=== PATIENT | female | born 1935 | race Hispanic/Latino ===

== ENCOUNTER 2016-05-22 15:28 | Emergency (ER) | payer MEDICARE ==
[~2016-05-22] VITALS: Ht 152.4 cm; Wt 65.0 kg
[~2016-05-22 15:28] MED LIST: ALENDRONATE35 MG PO; AMLODIPINE5 MG PO; ASPIRIN CHEWABL81 MG PO; BUSPIRONE7.5 MG PO; CALCIUM600 M1 PO; CHELATED MAGNE100 MG PO; CIPROFLOXACN250 MG PO; CLOPIDOGREL75 MG PO; COREG3.125 MG PO; LOSARTAN POT100 MG PO; METFORMIN500 M1 PO; PANTOPRAZOLE SO40 MG PO; SANCTURA20 MG OR; TRICOR145 MG PO; TROSPIUM CL20 MG PO; VITAMIN D1000 UNIT PO; ZOCOR20 M1 PO
[2016-05-22] MEDS ORDERED: OXYBUTYNIN5 M1 PO (15:40)
[2016-05-22] MEDS ORDERED: LIPITOR20 M1 PO (15:44)
[2016-05-22] MEDS ORDERED: TELMISARTAN80 MG PO (15:45)
[2016-05-22 16:13] LABS: HEMOGLOBIN 9.4 g/dl (12.0-16.0); IMMATURE GRANULOCYTES 0.2 % (0.0-1.0); MEAN CELL VOLUME 84.7 fL CALC (80.0-100.0); MEAN CORPUSCULAR HGB 30.6 pG CALC (26.0-32.0); MEAN CORPUSCULAR HGB CONC 36.2 g/L CALC (32.0-36.0); NEUT# 5.23 thou/uL (2.00-7.15); RED BLOOD COUNT 3.07 mill/uL (4.20-5.60); RED CELL DISTRI WIDTH 12.3 % (11.5-15.5)
[2016-05-22 16:32] LABS: PROTHROMBIN TIME 10.6 SECONDS (9.0-12.5)
[2016-05-22 16:35] LABS: ALBUMIN 4.2 g/dL (3.2-5.0); ALKALINE PHOSPHATASE 85 u/l (38-126); ANION GAP 16 (6-22 (CALC)); BILIRUBIN, TOTAL 0.5 mg/dL (0.0-1.4); BUN 19 mg/dL (8-23); BUN/CREATININE RATIO 15 (12-20 (CALC)); CALCIUM 9.6 mg/dL (8.4-10.2); CARBON DIOXIDE 24 mmol/l (22-30); CHLORIDE 94 mmol/l (95-108); CREATININE 1.3 mg/dL (0.5-1.0); GFR 39 ML/MIN (>=60 (CALC)); GFR FOR AFR.AMER. 47 ML/MIN (>=60 (CALC)); GLUCOSE 119 mg/dL (82-115); POTASSIUM 4.7 mmol/l (3.5-5.1); SGOT/AST 35 u/l (9-36); SGPT/ALT 37 u/l (11-66); SODIUM 128 mmol/l (137-146); TOTAL PROTEIN 7.4 g/dL (6.3-8.2)
[2016-05-22 16:46] LABS: MYOGLOBIN 48 ng/mL (0 - 62)
[2016-05-22 17:35] LABS: URINE BILIRUBIN - DIPSTICK NEGATIVE (NEGATIVE); URINE BLOOD DIPSTICK NEGATIVE (NEGATIVE); URINE CLARITY CLEAR; URINE COLOR YELLOW; URINE GLUCOSE - DIPSTICK NEGATIVE (NEGATIVE); URINE KETONE NEGATIVE (NEGATIVE); URINE LEUK ESTERASE TRACE (NEGATIVE); URINE NITRITE - DIPSTICK NEGATIVE (Negative); URINE PH 5.5 (4.5-8.0); URINE PROTEIN - DIPSTICK 30 mg/dL (NEG-TRACE); URINE UROBILINOGEN - DIPSTICK 0.2 E.U./dL (0.2)
[2016-05-22 17:36] LABS: URINE RBC 0-2 RBC/hpf (0-5); URINE SQUAMOUS EPITHELIAL CELL FEW EPI/hpf (0-FEW); URINE WBC 0-2 WBC/hpf (0-5)
[2016-05-22 18:02] VITALS: BP 121/57
== END 2016-05-22 18:17 | disposition home or self-care (01) ==
LOC: ED 15:28
PROVIDERS: Emergency Medicine
DX: R42 Dizziness and giddiness (principal); I10 Essential (primary) hypertension; E11.9 Type 2 diabetes mellitus without complications; F32.9 Major depressive disorder, single episode, unspecified; M81.0 Age-related osteoporosis without current pathological fracture; E78.5 Hyperlipidemia, unspecified; F41.9 Anxiety disorder, unspecified; R94.31 Abnormal electrocardiogram [ECG] [EKG]

== ENCOUNTER 2016-05-27 15:10 | Inpatient (IN) | payer MEDICARE ==
[~2016-05-27] VITALS: Ht 152.4 cm; Wt 64.0 kg
[~2016-05-27 15:10] MED LIST changes: +LIPITOR20 M1 PO; +OXYBUTYNIN5 M1 PO; +TELMISARTAN80 MG PO
--- NOTE | 2016-05-27 15:21 | NUR ---
PT TO ROOM 14 VIA WHEELCHAIR.
--- NOTE | 2016-05-27 16:15 | NUR ---
PT STATES SHE FEELS "VERY WEAK". BROWN.WARM BLANKETS FOR COMFORT. AWARE OF POC
--- NOTE | 2016-05-27 16:15 | NUR ---
PT STATES FEELING OF PALPITATIONS RESOLVED REGISTRY NURSE BUT "JUST WANTED IT CHECKED OUT .
[2016-05-27 16:32] LABS: ALBUMIN 4.1 g/dL (3.2-5.0); BILIRUBIN, TOTAL 0.6 mg/dL (0.0-1.4); CALCIUM 9.2 mg/dL (8.4-10.2); CREATININE 1.1 mg/dL (0.5-1.0); HEMATOCRIT 25.3 % (37.0-47.0); HEMOGLOBIN 9.2 g/dl (12.0-16.0); IMMATURE GRANULOCYTES 0.1 % (0.0-1.0); MEAN CELL VOLUME 83.8 fL CALC (80.0-100.0); MEAN CORPUSCULAR HGB 30.5 pG CALC (26.0-32.0); MEAN CORPUSCULAR HGB CONC 36.4 g/L CALC (32.0-36.0); NEUT# 5.31 thou/uL (2.00-7.15); POTASSIUM 4.8 mmol/l (3.5-5.1); RED BLOOD COUNT 3.02 mill/uL (4.20-5.60); RED CELL DISTRI WIDTH 12.6 % (11.5-15.5)
[2016-05-27 17:08] LABS: MYOGLOBIN 51 ng/mL (0 - 62)
--- NOTE | 2016-05-27 17:48 | NUR ---
FAMILY AT BEDSIDE. AWAITING TEST RESULTS. PT C/O POSTERIOR NECK PAIN,MD AWARE
--- NOTE | 2016-05-27 18:32 | NUR ---
BROWN, AT BEDSIDE. O2 SAT 96% ON RA. LUNGS CLEAR, DIMINISHED BILATERALLY.
--- NOTE | 2016-05-27 19:02 | NUR ---
REPORT TO MEY KINNEYRN
--- NOTE | 2016-05-27 19:03 | NUR ---
CALLED REPORT TO [facility]
[2016-05-27 19:34] LABS: URINE BILIRUBIN - DIPSTICK NEGATIVE (NEGATIVE); URINE BLOOD DIPSTICK NEGATIVE (NEGATIVE); URINE CLARITY CLEAR; URINE COLOR YELLOW; URINE GLUCOSE - DIPSTICK NEGATIVE (NEGATIVE); URINE KETONE NEGATIVE (NEGATIVE); URINE NITRITE - DIPSTICK NEGATIVE (Negative); URINE PROTEIN - DIPSTICK 30 mg/dL (NEG-TRACE); URINE SPECIFIC GRAVITY 1.015; URINE UROBILINOGEN - DIPSTICK 0.2 E.U./dL (0.2)
[2016-05-27 19:35] LABS: URINE LEUK ESTERASE SMALL (NEGATIVE)
[2016-05-27 19:47] LABS: URINE BACTERIA RARE hpf; URINE SQUAMOUS EPITHELIAL CELL FEW EPI/hpf (0-FEW)
--- NOTE | 2016-05-27 20:25 | NUR ---
UP ON BSC TO VOID TOLERATED NO SOB NO COUGH
--- NOTE | 2016-05-27 20:55 | NUR ---
TO ICU VIA STRETCHER IN IMPROVED STABLE CONDITION.NO COUGH NO SOB.W/P/D SKIN
[2016-05-27 21:15] VITALS: BP 134/57
--- NOTE | 2016-05-27 21:15 | NUR ---
FROM ER TO ICU BED7 ACCOMPANIED BY Corby RN, VIA STRETCHER AND STUDIO ASSISTANT; PT ABLE TO AMBULATE FROM STRETCHER TO STANDING SCALE THEN TO BED WITH ASSISTANCE X1; UNSTEADY GAIT NOTED; STATES USES A WALKER AT HOME TO AMBULATE; AND TWO DAUGHTERS AT BEDSIDE; PT C/O ACHING PAIN IN POSTERIOR NECK AND HEAD; RATES IT AT 5/10; WILL MEDICATE PER ORDERS; NO DISTRESS NOTED; AFEBRILE; VSS AND RESP ARE EVEN AND UNLABORED; SB TO SR ON MONITOR WITH HR 55-60 WITH A FIRST DEGREE BLOCK; ON 2LPM VIA NC; CAME WITH A 22G SALINE LOCK; IV SITE FLUSHES WELL AND APPEARS HEALTHY FREE OF REDNESS AND EDEMA; SOME EDEMA NOTED ON BILAT ANKLES; UPPER LOBES ARE CLEAR ON AUSCULTATION WITH DIMINISHED BIBASILAR; EXPLAINED CALL LIGHT AND PLAN OF CARE; PT NEEDS REINFORCEMENT, BUT SPOUSE VOICES UNDERSTANDING; WILL CONTINUE TO MONITOR. CALL ALVAREZ IS WITHIN REACH; MACIEL HOSE ARE IN PLACE.
[2016-05-27 21:30] VITALS: BP 134/51
[2016-05-27 21:45] VITALS: BP 135/54
[2016-05-27 22:00] VITALS: BP 142/57
[2016-05-27 22:15] VITALS: BP 149/61
--- NOTE | 2016-05-27 23:00 | NUR ---
ASSSITED PT OOB TO BSC; VOIDED 100 ML OF CLEAR YELLOW URINE; REMOVED MACIEL HOSE PER PT REQUEST; CALL ALVAREZ WITHIN REACH WILL CONTINUE TO MONITOR.
[2016-05-27 23:24] LABS: ANION GAP 13 (6-22 (CALC)); BUN 15 mg/dL (8-23); BUN/CREATININE RATIO 15 (12-20 (CALC)); CALCIUM 8.7 mg/dL (8.4-10.2); CARBON DIOXIDE 21 mmol/l (22-30); CHLORIDE 94 mmol/l (95-108); GFR 53 ML/MIN (>=60 (CALC)); GFR FOR AFR.AMER. > 60 ML/MIN (>=60 (CALC)); GLUCOSE 105 mg/dL (82-115); POTASSIUM 4.4 mmol/l (3.5-5.1); SODIUM 124 mmol/l (137-146)
[2016-05-28] VITALS (10 sets, daily range): BP systolic 131–148; BP diastolic 23–75
--- NOTE | 2016-05-28 01:00 | NUR ---
PT C/O ACHING PAIN IN POSTERIOR NECK; STATES AT HOME USES A HEATING PAD; PROVIDED A WARM TOWEL AND PLACED AND NECK, STATES FEELS BETTER, WILL CONTINUE TO REASSESS, CALL ALVAREZ IS WITHIN REACH.
--- NOTE | 2016-05-28 02:00 | NUR ---
ASSISTED PT OOB TO BSC; PT IS FREQUENTLY USING BSC VOIDING SMALL AMOUNTS OF URINE; VOIDED 50 ML AT THIS TIME; RE-WARMED TOWEL AND PLACED ON POSTERIOR NECK; CONTINUE SB ON MONITOR WITH HR 54 AT THIS TIME; AFEBRILE; NO SIGNS OF DISTRESS NOTED; RESP ARE EVEN AND UNLABORED; REPOSITIONED FOR COMFORT C PILLOW SUPPORTING BACK AND PILLOW BETWEEN LEGS; OCCASIONALLY NOTED FLOOR STEWARD/STEWARDESS DRY COUGH; CALL ALVAREZ IS WITHIN REACH; WILL CONTINUE TO MONITOR. SPOUSE AT BEDSIDE.
--- NOTE | 2016-05-28 04:03 | NUR ---
PT APPEARS TO BE SLEEPING WITH EYES CLOSED; VSS; AFEBRILE; RESP ARE UNLABORED; SPOUSE AT BEDSIDE; VOICES NO COMPLAINTS AT THIS TIME; NO DISTRESS NOTED; IV SITE REMAINS PATENT INFUSING IVF AT RX RATE WITHOUT SIGNS OF INFILTRATION; CALL ALVAREZ IS WITHIN REACH WILL CONTINUE TO MONITOR.
--- NOTE | 2016-05-28 06:07 | NUR ---
ASSISTED PT TO BSC; VOIDED 300 ML OF CLEAR YELLOW URINE; RESP EVEN AND UNLABORED; VSS; DENIES PAIN OR NEEDS AT THIS TIME; IVF CONTINUE TO INFUSE AT 100 ML/HR WITHOUT DIFFICULTY; SPOUSE IS AT BEDSIDE; WILL CONTINUE TO MONITOR; CALL ALVAREZ IS WITHIN REACH.
--- NOTE | 2016-05-28 07:28 | NUR ---
PATIENT IN BED AWAKE, AT BEDSIDE. ASSESSMENT COMPLETED AT THIS TIME. RESP EVEN AND UNLABORED. NO S/S OF DISTRESS NOTED. PATIENT ASSISTED TO BSC AND BACK TO BED WITH MINIMAL ASSISTANCE. PATIENT COMPLAINS OF NECK PAIN, WARM COMPRESS PROVIDED. CALL LIGHT IN REACH. ENCOURAGED TO CALL FOR ANY NEEDS.
--- NOTE | 2016-05-28 10:00 | NUR ---
PATIENT SITTING UP IN BED. VISITORS AT BEDSIDE. RESP EVEN AND UNLABORED. NO S/S OF DISTRESS NOTED. PATIENT DENIES ANY NEEDS OR PAIN. CALL LIGHT IN REACH. ENCOURAGED TO CALL FOR ANY NEEDS.
[2016-05-28 11:14] LABS: ANION GAP 13 (6-22 (CALC)); BUN 13 mg/dL (8-23); BUN/CREATININE RATIO 13 (12-20 (CALC)); CALCIUM 8.8 mg/dL (8.4-10.2); CARBON DIOXIDE 21 mmol/l (22-30); CHLORIDE 95 mmol/l (95-108); GFR 53 ML/MIN (>=60 (CALC)); GFR FOR AFR.AMER. > 60 ML/MIN (>=60 (CALC)); GLUCOSE 110 mg/dL (82-115); POTASSIUM 4.3 mmol/l (3.5-5.1); SODIUM 125 mmol/l (137-146)
--- NOTE | 2016-05-28 11:55 | NUR ---
PATIENT IN BED. RESP EVEN AND UNLABORED. NO S/S OF DISTRESS NOTED. PATIENT COMPLAINS OF ABD DISCOMFORT. ASSISTED TO BSC AND BACK TO BED, TOLERATES WELL. CALL LIGHT IN REACH. MANY VISITORS AT BEDSIDE. MANY EXTRA CHAIRS PROVIDED.
[2016-05-28 13:42] LABS: HEMATOCRIT 24.4 % (37.0-47.0); HEMOGLOBIN 8.6 g/dl (12.0-16.0); IMMATURE GRANULOCYTES 0.3 % (0.0-1.0); MEAN CELL VOLUME 84.4 fL CALC (80.0-100.0); MEAN CORPUSCULAR HGB 29.8 pG CALC (26.0-32.0); MEAN CORPUSCULAR HGB CONC 35.2 g/L CALC (32.0-36.0); NEUT# 4.73 thou/uL (2.00-7.15); RED BLOOD COUNT 2.89 mill/uL (4.20-5.60); RED CELL DISTRI WIDTH 12.6 % (11.5-15.5)
--- NOTE | 2016-05-28 14:25 | NUR ---
PT TO ROOM VIA BED ACCOMPANIED BY STAFF; PT A/O NEPALESE SPEAKING; FAMILY IN WITH PT; IVF INFUSING WELL; O2 2L VIA NC; ORIENTED TO ROOM AND CALL SYSTEM; WILL CONTINUE TO MONITOR.
--- NOTE | 2016-05-28 17:22 | NUR ---
PT UP IN CHAIR; SPOUSE AT SIDE; IVF INFUSING WITHOUT DIFFICULTY; CALL ALVAREZ WITHIN REACH; WILL CONTINUE TO MONITOR.
--- NOTE | 2016-05-28 19:45 | NUR ---
PT CALLED STAFF INTO ROOM AND C/O PAIN TO LAC IV SITE, IV SITE IS SLIGHTLY REDDENED, IV DC'D AND WILL START NEW IV, OOB TO BATHROOM WITH STEADY GAIT ONE PERSON AT HER SIDE. IN ROOM. RESPIRATIONS EVEN AND UNLABORED.
--- NOTE | 2016-05-29 00:39 | NUR ---
OOB TO BATHROOM WITH ONE PERSON ASSISTANCE, HAVING MODERATE LOOSE BROWN BM. BACK TO BED, CALL LIGHT IN REACH, AT BED SIDE. IV FLUIDS INFUSING TO LFA WITH NO COMPLICATIONS.
[2016-05-29 03:40] VITALS: BP 128/58
--- NOTE | 2016-05-29 04:10 | NUR ---
MORNING BLOOD WORK DRAWN BY LINING IRONER AT THIS TIME, TOLERATED WELL.
[2016-05-29 04:57] LABS: HEMATOCRIT 23.2 % (37.0-47.0); HEMOGLOBIN 8.2 g/dl (12.0-16.0); IMMATURE GRANULOCYTES 0.3 % (0.0-1.0); MEAN CELL VOLUME 84.1 fL CALC (80.0-100.0); MEAN CORPUSCULAR HGB 29.7 pG CALC (26.0-32.0); MEAN CORPUSCULAR HGB CONC 35.3 g/L CALC (32.0-36.0); NEUT# 4.16 thou/uL (2.00-7.15); RED BLOOD COUNT 2.76 mill/uL (4.20-5.60); RED CELL DISTRI WIDTH 12.6 % (11.5-15.5)
[2016-05-29 05:13] LABS: ANION GAP 13 (6-22 (CALC)); BUN 10 mg/dL (8-23); BUN/CREATININE RATIO 12 (12-20 (CALC)); CALCIUM 8.6 mg/dL (8.4-10.2); CARBON DIOXIDE 20 mmol/l (22-30); CHLORIDE 96 mmol/l (95-108); CREATININE 0.9 mg/dL (0.5-1.0); GFR 60 ML/MIN (>=60 (CALC)); GFR FOR AFR.AMER. > 60 ML/MIN (>=60 (CALC)); GLUCOSE 87 mg/dL (82-115); POTASSIUM 4.5 mmol/l (3.5-5.1); SODIUM 124 mmol/l (137-146)
--- NOTE | 2016-05-29 07:20 | NUR ---
PT REPOSITIONED IN BED; AND ASSISTED WITH BREAKFAST SET UP
--- NOTE | 2016-05-29 07:59 | NUR ---
DR. VU IN TO SEE PT; PLAN OF CARE DISCUSSED
[2016-05-29 08:53] VITALS: BP 133/57
--- NOTE | 2016-05-29 10:55 | NUR ---
DR. PETERSEN IN TO SEE PT
--- NOTE | 2016-05-29 11:20 | NUR ---
PT C/O FEELING "LIKE THROAT IS CLOSING UP AND CHEST PAIN; VS, EKG OBTAINED; PT REPOSITIONED; NORMAL MOUTH AND THROAT OBSERVED; MD NOTIFIED; WILL CONTINUE TO MONITOR.
[2016-05-29 12:13] VITALS: BP 141/60
[2016-05-29 15:09] VITALS: BP 129/58
--- NOTE | 2016-05-29 15:37 | NUR ---
PT SITTING UP IN CHAIR AT BEDSIDE; NO S/S OF DISTRESS NOTED; SPOUSE AT BEDSIDE; PT DENIES ANY NEEDS AT THIS TIME; C/O LOOSE STOOL AND MILD PAIN TO ABD; PT ENCOURAGED TO CALL FOR ANY ASSISTANCE NEEDED; CALL LIGHT WITHIN REACH; WILL CONTINUE TO MONITOR
[2016-05-29 19:20] VITALS: BP 135/51
--- NOTE | 2016-05-29 20:40 | NUR ---
PT IN BED WATCHING TV WITH AT BED SIDE. RESPIRATIONS EVEN AND UNLABORED. C/O NAUSEA AND MEDICATED WITH ZOFRAN 4MG IV. C/O PARVEZ AREA FEELING SORE DUE TO FREQUENT LOOSE BM'S BARRIER CREAM APPLIED. ENCOURAGED TO USE CALL LIGHT FOR ASSISTANCE.
--- NOTE | 2016-05-29 23:11 | NUR ---
C/O RIGHT FLANK PAIN, MEDICATED WITH TYLENOL 650MG PO.
--- NOTE | 2016-05-30 04:00 | NUR ---
RESTING IN SEMIFOWLERS WITH EYES CLOSED RESPIRATIONS EVEN AND UNLABORED.
[2016-05-30 04:15] VITALS: BP 137/51
[2016-05-30 06:26] LABS: ALBUMIN 3.4 g/dL (3.2-5.0); BUN 8 mg/dL (8-23); CALCIUM 8.8 mg/dL (8.4-10.2); CARBON DIOXIDE 20 mmol/l (22-30); CHLORIDE 94 mmol/l (95-108); CREATININE 0.9 mg/dL (0.5-1.0); GFR 60 ML/MIN (>=60 (CALC)); GFR FOR AFR.AMER. > 60 ML/MIN (>=60 (CALC)); GLUCOSE 81 mg/dL (82-115); POTASSIUM 4.6 mmol/l (3.5-5.1); SODIUM 123 mmol/l (137-146)
--- NOTE | 2016-05-30 07:00 | NUR ---
DR. VU IN TO SEE PT; PLAN OF CARE DISCUSSED
--- NOTE | 2016-05-30 08:20 | NUR ---
PT IN CHAIR WITH FEET ELEVATED; FAMILY AT BEDSIDE; CALL ALVAREZ WITHIN REACH; WILL CONTINUE TO MONITOR.
[2016-05-30 08:25] VITALS: BP 135/56
[2016-05-30 12:21] VITALS: BP 130/55
--- NOTE | 2016-05-30 13:08 | NUR ---
PT VISITING WITH FAMILY; NO COMPLAINTS VOICED; IV ANTIBIOTICS STARTED AT THIS TIME; CALL ALVAREZ WITHIN REACH; WILL CONTINUE TO MONITOR.
[2016-05-30 13:21] LABS: URINE BILIRUBIN - DIPSTICK NEGATIVE (NEGATIVE); URINE BLOOD DIPSTICK TRACE-INTACT (NEGATIVE); URINE COLOR YELLOW; URINE GLUCOSE - DIPSTICK NEGATIVE (NEGATIVE); URINE KETONE NEGATIVE (NEGATIVE); URINE LEUK ESTERASE NEGATIVE (NEGATIVE); URINE NITRITE - DIPSTICK NEGATIVE (Negative); URINE PROTEIN - DIPSTICK 30 mg/dL (NEG-TRACE); URINE SPECIFIC GRAVITY <=1.005; URINE UROBILINOGEN - DIPSTICK 0.2 E.U./dL (0.2)
[2016-05-30 13:23] LABS: URINE CLARITY SLIGHT CLOUDY
[2016-05-30 13:24] LABS: URINE EPITHELIAL CELLS FEW EPI/hpf (0-FEW)
[2016-05-30 13:25] LABS: URINE MUCUS MODERATE hpf (NONE-FEW)
[2016-05-30 15:23] VITALS: BP 132/57
--- NOTE | 2016-05-30 17:41 | NUR ---
PT SITTING IN RECLINER; DENIES PAIN; IN ROOM; CALL ALVAREZ WITHIN REACH; WILL CONTINUE TO MONITOR.
[2016-05-30 18:49] LABS: ANION GAP 16 (6-22 (CALC)); BUN 8 mg/dL (8-23); BUN/CREATININE RATIO 9 (12-20 (CALC)); CALCIUM 9.3 mg/dL (8.4-10.2); CARBON DIOXIDE 22 mmol/l (22-30); CHLORIDE 96 mmol/l (95-108); GFR 53 ML/MIN (>=60 (CALC)); GFR FOR AFR.AMER. > 60 ML/MIN (>=60 (CALC)); GLUCOSE 131 mg/dL (82-115); POTASSIUM 4.4 mmol/l (3.5-5.1); SODIUM 129 mmol/l (137-146)
[2016-05-30 19:12] VITALS: BP 143/56
--- NOTE | 2016-05-30 21:19 | NUR ---
AMBULATING BACK TO BED AFTER SHOWER ASSITED BY ADAM BARROSO. C/O GENERALIZED PAIN 06/28, MEDICATED WITH TYLENOL 650MG PO. RESPIRATIONS EVEN AND UNLABORED ON RA. PO FLUIDS IN REACH, AT BED SIDE. WILL CONTINUE TO MONITOR.
--- NOTE | 2016-05-31 00:10 | NUR ---
RESTING IN BED WITH EYES CLOSED, RESPIRATIONS EVEN AND UNLABORED.
--- NOTE | 2016-05-31 04:00 | NUR ---
OOB TO BSC VOIDING CLEAR YELLOW URINE. BACK TO BED, CALL LIGHT IN REACH.
[2016-05-31 04:03] VITALS: BP 132/42
[2016-05-31 06:28] LABS: ALBUMIN 3.6 g/dL (3.2-5.0); BUN 7 mg/dL (8-23); CALCIUM 9.5 mg/dL (8.4-10.2); CARBON DIOXIDE 24 mmol/l (22-30); CHLORIDE 100 mmol/l (95-108); CREATININE 0.9 mg/dL (0.5-1.0); GFR 60 ML/MIN (>=60 (CALC)); GFR FOR AFR.AMER. > 60 ML/MIN (>=60 (CALC)); GLUCOSE 75 mg/dL (82-115); POTASSIUM 4.1 mmol/l (3.5-5.1); SODIUM 134 mmol/l (137-146)
[2016-05-31] MEDS ORDERED: AVIDOXY100 MG PO (06:42)
[2016-05-31] MEDS ORDERED: FERR SULFATE325 MG PO (06:43)
--- NOTE | 2016-05-31 07:21 | NUR ---
BEDSIDE REPORT RECEIVED FROM JASBIR JEAN BAPTISTE. PT SITTING IN CHAIR AT BEDSIDE. PRESENT. PLAN OF CARE DISCUSSED. REPROTING OF CONCERNS ENCOURAGED. CALL LIGHT REVIEWED AND IN REACH. PT STATES UNDERSTANDING.
[2016-05-31 08:49] VITALS: BP 139/53
[2016-05-31] MEDS ORDERED: LASIX 20 MG20 MG/TAB PO (09:22)
--- NOTE | 2016-05-31 10:00 | NUR ---
FERRITIN IV INFUSING THROUGH #22 RFA, NO REDNESS S/S INFILTRATION. PT SITTING IN CHAIR AT BEDSIDE. DENIES COMPLAINTS. MULTIPLE FAMILY MEMBERS PRESENT. AWAITING INFUSION COMPLETION FOR DISCHARGE.
--- NOTE | 2016-05-31 12:38 | NUR ---
Discharge instructions given. Patient verbalizes understanding of same. Discharged in stable condition via Wheelchair to Home with spouse. All belongings sent with pt.
== END 2016-05-31 12:40 | disposition home or self-care (01) | DRG 641 ==
LOC: ENPENDDIS → ED 15:10 → ED-I 18:39 → ED 18:54 → MS2 18:55 → ICU 18:55 → MS2 05-28 14:26
PROVIDERS: Emergency Medicine; Internal Medicine; Internal Medicine Nephrology; ADMIT Internal Medicine; ATTEND Internal Medicine
DX: E87.1 Hypo-osmolality and hyponatremia (principal); J90 Pleural effusion, not elsewhere classified; E11.22 Type 2 diabetes mellitus with diabetic chronic kidney disease; F03.90 Unspecified dementia, unspecified severity, without behavioral disturbance, psychotic disturbance, mood disturbance, and anxiety; N39.0 Urinary tract infection, site not specified; J98.11 Atelectasis; I12.9 Hypertensive chronic kidney disease with stage 1 through stage 4 chronic kidney disease, or unspecified chronic kidney disease; N18.9 Chronic kidney disease, unspecified; E78.5 Hyperlipidemia, unspecified; D63.8 Anemia in other chronic diseases classified elsewhere; B95.7 Other staphylococcus as the cause of diseases classified elsewhere; D50.0 Iron deficiency anemia secondary to blood loss (chronic)
CPT/HCPCS: J1756; Q9967

== ENCOUNTER 2016-12-01 10:39 | Emergency (ER) | payer MEDICARE ==
[~2016-12-01] VITALS: Ht 152.4 cm; Wt 59.0 kg
[~2016-12-01 10:39] MED LIST changes: +AVIDOXY100 MG PO; +FERR SULFATE325 MG PO; +LASIX 20 MG20 MG/TAB PO
[2016-12-01] MEDS ORDERED: FAMOTIDINE20 M1 PO (10:52)
[2016-12-01] MEDS ORDERED: AVAPRO150 MG PO (10:53)
[2016-12-01] MEDS ORDERED: FUROSEMIDE40 MG PO (10:53)
[2016-12-01] MEDS ORDERED: EC-NAPROSYN500 MG PO (11:12)
[2016-12-01 11:46] VITALS: BP 161/74
== END 2016-12-01 11:46 | disposition home or self-care (01) ==
LOC: ED 10:39
PROC: 2W3CX1Z Immobilization of Right Lower Arm using Splint (ICD-10-PCS; principal; 2016-12-01)
DX: S52.501A Unspecified fracture of the lower end of right radius, initial encounter for closed fracture (principal); W22.09XA Striking against other stationary object, initial encounter; Y92.008 Other place in unspecified non-institutional (private) residence as the place of occurrence of the external cause; M25.431 Effusion, right wrist; M25.531 Pain in right wrist

== ENCOUNTER 2017-01-04 13:22 | Inpatient (IN) | payer MEDICARE ==
[~2017-01-04] VITALS: Ht 152.4 cm; Wt 50.0 kg
[~2017-01-04 13:22] MED LIST changes: +AVAPRO150 MG PO; +EC-NAPROSYN500 MG PO; +FAMOTIDINE20 M1 PO; +FUROSEMIDE40 MG PO
[2017-01-04 14:10] LABS: HEMATOCRIT 31.8 % (37.0-47.0); HEMOGLOBIN 11.4 g/dl (12.0-16.0); IMMATURE GRANULOCYTES 0.3 % (0.0-1.0); MEAN CELL VOLUME 87.1 fL CALC (80.0-100.0); MEAN CORPUSCULAR HGB 31.2 pG CALC (26.0-32.0); MEAN CORPUSCULAR HGB CONC 35.8 g/L CALC (32.0-36.0); NEUT# 5.28 thou/uL (2.00-7.15); RED BLOOD COUNT 3.65 mill/uL (4.20-5.60); RED CELL DISTRI WIDTH 11.5 % (11.5-15.5)
[2017-01-04 14:43] LABS: ALBUMIN 4.9 g/dL (3.2-5.0); ALKALINE PHOSPHATASE 103 u/l (38-126); ANION GAP 19 (6-22 (CALC)); BILIRUBIN, TOTAL 0.8 mg/dL (0.0-1.4); BUN 21 mg/dL (8-23); BUN/CREATININE RATIO 20 (12-20 (CALC)); CALCIUM 10.2 mg/dL (8.4-10.2); CARBON DIOXIDE 25 mmol/l (22-30); CHLORIDE 91 mmol/l (95-108); CREATININE 1.1 mg/dL (0.5-1.0); GFR 48 ML/MIN (>=60 (CALC)); GFR FOR AFR.AMER. 58 ML/MIN (>=60 (CALC)); GLUCOSE 135 mg/dL (82-115); POTASSIUM 4.8 mmol/l (3.5-5.1); SGOT/AST 39 u/l (9-36); SGPT/ALT 25 u/l (11-66); SODIUM 130 mmol/l (137-146); TOTAL PROTEIN 8.3 g/dL (6.3-8.2)
[2017-01-04 14:55] LABS: MYOGLOBIN 87 ng/mL (0 - 62)
[2017-01-04 20:08] VITALS: BP 154/64
[2017-01-04 22:45] LABS: URINE BILIRUBIN - DIPSTICK NEGATIVE (NEGATIVE); URINE BLOOD DIPSTICK TRACE-INTACT (NEGATIVE); URINE COLOR YELLOW; URINE GLUCOSE - DIPSTICK 100 mg/dL (NEGATIVE); URINE KETONE NEGATIVE (NEGATIVE); URINE LEUK ESTERASE NEGATIVE (NEGATIVE); URINE NITRITE - DIPSTICK NEGATIVE (Negative); URINE PROTEIN - DIPSTICK 100 mg/dL (NEG-TRACE); URINE SPECIFIC GRAVITY <=1.005; URINE UROBILINOGEN - DIPSTICK 0.2 E.U./dL (0.2)
[2017-01-04 22:51] LABS: BARBITURATES NEGATIVE (NEGATIVE); COCAINE NEGATIVE (NEGATIVE); METHADONE NEGATIVE (NEGATIVE); OXCYCODONE NEGATIVE (NEGATIVE); TETRAHYDROCANNABIONOL NEGATIVE (NEGATIVE); TRICYLIC ANTIDEPRESSANTS NEGATIVE (NEGATIVE)
[2017-01-04 23:13] LABS: URINE CLARITY CLEAR; URINE SQUAMOUS EPITHELIAL CELL FEW EPI/hpf (0-FEW)
[2017-01-05 00:51] VITALS: BP 159/68
[2017-01-05 04:47] VITALS: BP 168/65
[2017-01-05] MEDS ORDERED: CARVEDILOL6.25 MG PO (12:42)
[2017-01-05 15:09] VITALS: BP 152/71
[2017-01-05 16:43] LABS: HEMATOCRIT 27.4 % (37.0-47.0); HEMOGLOBIN 9.8 g/dl (12.0-16.0); IMMATURE GRANULOCYTES 0.3 % (0.0-1.0); MEAN CELL VOLUME 88.7 fL CALC (80.0-100.0); MEAN CORPUSCULAR HGB 31.7 pG CALC (26.0-32.0); MEAN CORPUSCULAR HGB CONC 35.8 g/L CALC (32.0-36.0); NEUT# 4.55 thou/uL (2.00-7.15); RED BLOOD COUNT 3.09 mill/uL (4.20-5.60); RED CELL DISTRI WIDTH 11.7 % (11.5-15.5)
[2017-01-05 16:49] LABS: ANION GAP 15 (6-22 (CALC)); BUN 15 mg/dL (8-23); BUN/CREATININE RATIO 17 (12-20 (CALC)); CALCIUM 9.1 mg/dL (8.4-10.2); CARBON DIOXIDE 21 mmol/l (22-30); CHLORIDE 100 mmol/l (95-108); CREATININE 0.9 mg/dL (0.5-1.0); GFR 60 ML/MIN (>=60 (CALC)); GFR FOR AFR.AMER. > 60 ML/MIN (>=60 (CALC)); GLUCOSE 194 mg/dL (82-115); MAGNESIUM 1.3 mg/dL (1.6-2.3); POTASSIUM 4.1 mmol/l (3.5-5.1); SODIUM 132 mmol/l (137-146)
[2017-01-05 19:10] VITALS: BP 122/48
[2017-01-06] VITALS (7 sets, daily range): BP systolic 116–160; BP diastolic 52–88
[2017-01-06 07:09] LABS: ANION GAP 14 (6-22 (CALC)); BUN 18 mg/dL (8-23); BUN/CREATININE RATIO 19 (12-20 (CALC)); CALCIUM 9.4 mg/dL (8.4-10.2); CARBON DIOXIDE 24 mmol/l (22-30); CHLORIDE 103 mmol/l (95-108); GFR 53 ML/MIN (>=60 (CALC)); GFR FOR AFR.AMER. > 60 ML/MIN (>=60 (CALC)); GLUCOSE 103 mg/dL (82-115); MAGNESIUM 2.9 mg/dL (1.6-2.3); POTASSIUM 4.5 mmol/l (3.5-5.1); SODIUM 136 mmol/l (137-146)
[2017-01-06 07:34] LABS: HEMATOCRIT 27.5 % (37.0-47.0); HEMOGLOBIN 9.6 g/dl (12.0-16.0); IMMATURE GRANULOCYTES 0.3 % (0.0-1.0); MEAN CELL VOLUME 89.6 fL CALC (80.0-100.0); MEAN CORPUSCULAR HGB 31.3 pG CALC (26.0-32.0); MEAN CORPUSCULAR HGB CONC 34.9 g/L CALC (32.0-36.0); NEUT# 4.65 thou/uL (2.00-7.15); RED BLOOD COUNT 3.07 mill/uL (4.20-5.60); RED CELL DISTRI WIDTH 11.8 % (11.5-15.5)
[2017-01-07 04:43] VITALS: BP 148/62
[2017-01-07 06:51] LABS: ANION GAP 14 (6-22 (CALC)); BUN 15 mg/dL (8-23); BUN/CREATININE RATIO 18 (12-20 (CALC)); CALCIUM 9.7 mg/dL (8.4-10.2); CARBON DIOXIDE 25 mmol/l (22-30); CHLORIDE 104 mmol/l (95-108); CREATININE 0.8 mg/dL (0.5-1.0); GFR > 60 ML/MIN (>=60 (CALC)); GFR FOR AFR.AMER. > 60 ML/MIN (>=60 (CALC)); GLUCOSE 99 mg/dL (82-115); POTASSIUM 4.4 mmol/l (3.5-5.1); SODIUM 139 mmol/l (137-146)
[2017-01-07 07:48] VITALS: BP 167/60
[2017-01-07 08:53] VITALS: BP 167/60
== END 2017-01-07 14:39 | disposition home health service (06) | DRG 884 ==
LOC: ED 13:22 → ED-I 13:55 → ED 13:55 → ED-I 16:35 → ED 16:55 → MS2 16:56
PROVIDERS: Emergency Medicine; Internal Medicine; Nurse Practitioner Family; ADMIT Internal Medicine; ATTEND Internal Medicine
DX: F01.51 Vascular dementia, unspecified severity, with behavioral disturbance (principal); E11.22 Type 2 diabetes mellitus with diabetic chronic kidney disease; D63.8 Anemia in other chronic diseases classified elsewhere; F02.81 Dementia in other diseases classified elsewhere, unspecified severity, with behavioral disturbance; F05 Delirium due to known physiological condition; E87.1 Hypo-osmolality and hyponatremia; G30.9 Alzheimer's disease, unspecified; E83.42 Hypomagnesemia; E86.0 Dehydration; I16.0 Hypertensive urgency; I12.9 Hypertensive chronic kidney disease with stage 1 through stage 4 chronic kidney disease, or unspecified chronic kidney disease; N18.9 Chronic kidney disease, unspecified; E78.5 Hyperlipidemia, unspecified; F41.8 Other specified anxiety disorders; M81.0 Age-related osteoporosis without current pathological fracture; Z79.84 Long term (current) use of oral hypoglycemic drugs
CPT/HCPCS: G0378; J2060; J3475

== ENCOUNTER 2017-01-26 00:57 | Observation (INO) | payer MEDICARE ==
[~2017-01-26] VITALS: Ht 144.8 cm; Wt 48.5 kg
[~2017-01-26 00:57] MED LIST changes: +CARVEDILOL6.25 MG PO
--- NOTE | 2017-01-26 00:57 | NUR ---
PT WHEELED STRAIGHT BACK TO ROOM 13 AND TRIAGED. PT HAD UNWITNESSED FALL OUTSIDE. LACERATION ABOVE RIGHT EYE AND ABRASIONS TO RIGHT SHOULDER AND KNEE
--- NOTE | 2017-01-26 01:45 | NUR ---
DR. RATLIFF COMPELETED THE SUTRURE REPAIR OF PATIENT'S FACIAL LAC. [facility] HERE TO TRANSPORT PATIENT TO [facility] CT SCANS. GRANDDAUGHTER TO RIDE IN THE RIG WITH PATIENT
[2017-01-26 01:49] LABS: HEMATOCRIT 31.4 % (37.0-47.0); HEMOGLOBIN 11.2 g/dl (12.0-16.0); IMMATURE GRANULOCYTES 0.6 % (0.0-1.0); MEAN CORPUSCULAR HGB 31.4 pG CALC (26.0-32.0); MEAN CORPUSCULAR HGB CONC 35.7 g/L CALC (32.0-36.0); NEUT# 12.44 thou/uL (2.00-7.15); RED BLOOD COUNT 3.57 mill/uL (4.20-5.60); RED CELL DISTRI WIDTH 11.9 % (11.5-15.5)
[2017-01-26 05:42] LABS: URINE BACTERIA FEW hpf; URINE BILIRUBIN - DIPSTICK NEGATIVE (NEGATIVE); URINE BLOOD DIPSTICK NEGATIVE (NEGATIVE); URINE CLARITY SL CLOUDY; URINE COLOR YELLOW; URINE GLUCOSE - DIPSTICK NEGATIVE (NEGATIVE); URINE KETONE NEGATIVE (NEGATIVE); URINE LEUK ESTERASE NEGATIVE (NEGATIVE); URINE MUCUS FEW hpf (NONE-FEW); URINE NITRITE - DIPSTICK NEGATIVE (Negative); URINE PH 5.5 (4.5-8.0); URINE PROTEIN - DIPSTICK 30 mg/dL (NEG-TRACE); URINE RBC 0-2 RBC/hpf (0-5); URINE SQUAMOUS EPITHELIAL CELL FEW EPI/hpf (0-FEW); URINE UROBILINOGEN - DIPSTICK 0.2 E.U./dL (0.2); URINE WBC 0-2 WBC/hpf (0-5)
--- NOTE | 2017-01-26 05:45 | NUR ---
PATIENT RETURNED FROM [facility] VIA [facility]. DR. RATLIFF SPOKE TO FAMILY MEMBERS ABOUT THE FINDINGS ON THE C SPINE CT. PLAN OF CARE IS NOW TO HAVE PATIENT GET AN MRI HERE AT [facility] AND PROCEED FROM THERE. PATIENT WAS STRAIGHT CATHED FOR A A URINE WHIHC WAS SENT TO THE LAB. IVF STARTED VIS PREXISITTING LINE IN THE LEFT WRIST. LINE FLSUHES EASILY WITH NORMAL SALINE, HOWEVER WILL NOT RUN ON A PUMP. INFUSING VIS GRAVITY AT 150 CC/HR PENDING THE READING OF THE CXR WHICH WAS TAKEN. VSS.
[2017-01-26 05:51] LABS: ALBUMIN 4.6 g/dL (3.2-5.0); BILIRUBIN, TOTAL 0.8 mg/dL (0.0-1.4); CALCIUM 9.8 mg/dL (8.4-10.2); CREATININE 1.3 mg/dL (0.5-1.0); POTASSIUM 4.4 mmol/l (3.5-5.1); TOTAL PROTEIN 7.8 g/dL (6.3-8.2)
--- NOTE | 2017-01-26 06:42 | NUR ---
Daniela HARVEY REQQUESTING PATIENT FOR MRI AT THIS [facility].
--- NOTE | 2017-01-26 06:42 | NUR ---
DR. RATLIFF NOTIFIED OF ELEVATED SYSTOLIC. NO NEW ORDERS.
--- NOTE | 2017-01-26 08:00 | NUR ---
BACK FROM M RI VIA STRECTHER, BACK TO BED WITH MAX ASSIST, PARVEZ CARE PROVIDED AND LINENS CHANGED FOR INCONTINENT OF LARGE AMOUNT CLEAR YELLOW URINE NO ODOR NOTED, FAMILY MEMBERS AT BEDSIDE.
--- NOTE | 2017-01-26 08:00 | NUR ---
PT RETURNED FROM MRI. STAFF IN ROOM CLEANING PT. FAMILY ALSO IN ROOM
--- NOTE | 2017-01-26 08:33 | NUR ---
FAMILY AT DESK STATING PT IS COMPLAINING OF PAIN IN HEAD AND NECK, MD NOTIFIED BP ELEVATED AND MANUAL 148/80, WILL MONITOR CLOSELY
--- NOTE | 2017-01-26 08:34 | NUR ---
MED REC ATTEMPTED. WHO HAS LIST IS CURRENTLY OUT OF THE BUILDING. WILL DO LIST WHEN HE RETURNS
--- NOTE | 2017-01-26 09:16 | NUR ---
ROOM SPOKE WITH FAMILY REGARDING ADMISSION OBSERVATION, FAMILY VERBALIZES UNDERSTANDING AND AGREEANCE.
[2017-01-26] MEDS ORDERED: DONEPEZIL5 MG PO (09:52)
[2017-01-26] MEDS ORDERED: MYRBETRIQ25 MG PO (09:55)
--- NOTE | 2017-01-26 10:15 | NUR ---
MEDICATED FOR BP WOTH PO MED ORDERED, HUSBANDE STATES BPO HAS BEEN ELEVATED, AND THEY HAVE BEEN SEEING THE DOCTOR ABOUT IT AND "WORKING ON IT"
--- NOTE | 2017-01-26 11:35 | NUR ---
REPORT CALLED TO DANE LEIJA ON MED SRUG ROOM 270 ASSIGNED,
--- NOTE | 2017-01-26 11:42 | NUR ---
Admission Note Report Given to: DANE Transported by: Wheelchair X Stretcher Transported with: X Nurse Transporter X Patent IV O2 Tower Equipment Repairer
--- NOTE | 2017-01-26 11:42 | NUR ---
PT TRANSFERRED TO [facility] VIA STRETCHER WITH FAMILY AND BELONGINGS SENT WITH PT
--- NOTE | 2017-01-26 11:45 | NUR ---
PT ARRIVED TO FLOOR VIA STRETCHER ACCOMPANIED BY JASBIR ALONZO. PT TRANSFERED TO BED BY PULLOVER BY STAFF X 4. PT REPORTS MILD SORENESS TO BACK OF NECK. REPORTING OF CONCERNS ENCOURAGED. PT PERSIAN SPEAKING ONLY, MULTIPLE FAMILY MEMBERS AT BEDSIDE TO ASSIST TRANSLATION. PLAN OF CARE DISCUSSED. FALL PRECAUTIONS REINFORCED. BED ALARM SET FOR SAFETY. CALL LIGHT REVIEWED AND IN REACH. PT AND FAMILY STATE UNDERSTANDING.
[2017-01-26 11:58] VITALS: BP 147/63
[2017-01-26 17:27] VITALS: BP 152/71
--- NOTE | 2017-01-26 17:28 | NUR ---
PT'S DAUGHTER REPORTS PT HALLUCINATING. PT STATES "THE SNAKES ARE COMING." FAMILY PROVIDED EMOTIONAL COMFORT AND PT RE-ORIENTED. NO OTHER CHANGES TO NEURO STATUS.
--- NOTE | 2017-01-26 19:00 | NUR ---
PT RESTING IN BED, AWAKE, FAMILY AT BEDSIDE, DENIES PAIN AT THIS TIME, NO DISTRESS NOTED, WILL FOLLOW UP WITH MED SCHEDULE AND PLAN OF CARE.
[2017-01-26 20:00] VITALS: BP 149/67
--- NOTE | 2017-01-26 23:19 | NUR ---
DAUGHTER AT BEDSIDE, PT APPEARS TO BE SLEEPING WITH EYES CLOSED, PREVIOUSLY C/O ACHING PAIN, THIS OCCUPATIONAL MEDICINE SPECIALIST IN ROOM TO ADMINISTER ULTRAM PER ORDERS, DAUGHTER STATED "LET HER SLEEP, DON'T WAKE HER UP TO GIVE PAIN MED, IF SHE WAKES UP, AND COMPLAINS OF PAIN, I LET YOU KNOW." ULTRAM NOT ADMINISTERED AT THIS TIME PER DAUGHTER REQUEST, NO DISTRESS NOTED, RESP ARE EVEN AND UNLABORED.
[2017-01-27 00:13] VITALS: BP 108/54
--- NOTE | 2017-01-27 01:08 | NUR ---
PT APPEARS TO BE SLEEPING WITH EYES CLOSED, DAUGHTER AT BEDSIDE, RESPONDS TO VERBAL/PHYSICAL STIMULI, APPEARS CONFUSE, ALERT TO SELF ONLY, RESP ARE EVEN AND UNLABORED, NO S/S OF DISTRESS, NS INFUSING AT 100ML/HR WITHOUT DIFFICULTY, ENCOURAGED TO CALL IF NEEDED, CALL ALVAREZ AT REACH.
[2017-01-27 04:44] VITALS: BP 130/58
--- NOTE | 2017-01-27 05:10 | NUR ---
NS INFUSING WITHOUT DIFFICULTY PER ORDERS, DAUGHTER AT BEDSIDE, STATES PT HAS BEEN SLEEPING WELL, PT RESPONDS TO VERBAL OR PHYSICAL STIMULI, OFFERED PAIN MED, DENIES PAIN, ORAL HYDRATION PROVIDED, REMAINS ALERT AND ORIENTED TO SELF, CONFUSE, DAUGHTER STATES "THIS IS HOW SHE IS AT HOME." ENCOURAGED DAUGHTER TO CALL IF NEEDED, VOICES UNDERSTANDING, PT DENIES NEEDS.
[2017-01-27 06:42] LABS: HEMATOCRIT 26.1 % (37.0-47.0); IMMATURE GRANULOCYTES 0.4 % (0.0-1.0); MEAN CORPUSCULAR HGB CONC 34.5 g/L CALC (32.0-36.0); NEUT# 5.22 thou/uL (2.00-7.15); RED BLOOD COUNT 2.9 mill/uL (4.20-5.60); RED CELL DISTRI WIDTH 12.1 % (11.5-15.5)
[2017-01-27 06:53] LABS: ANION GAP 13 (6-22 (CALC)); BUN 26 mg/dL (8-23); BUN/CREATININE RATIO 25 (12-20 (CALC)); CALCIUM 8.9 mg/dL (8.4-10.2); CARBON DIOXIDE 23 mmol/l (22-30); CHLORIDE 107 mmol/l (95-108); GFR 53 ML/MIN (>=60 (CALC)); GFR FOR AFR.AMER. > 60 ML/MIN (>=60 (CALC)); GLUCOSE 88 mg/dL (82-115); MAGNESIUM 1.6 mg/dL (1.6-2.3); POTASSIUM 4.4 mmol/l (3.5-5.1); SODIUM 138 mmol/l (137-146)
[2017-01-27 07:41] VITALS: BP 152/62
--- NOTE | 2017-01-27 07:59 | NUR ---
PT.IS MILDLY AGITATED AND CONFUSED. SHE IS LAYING IN BED, NOT ATTEMPTING TO GET OUT OF BED, DAUGHTER IS AT BEDSIDE. WE HAVE BOTH ATTEMPTED TO ADMINISTER MEDICATIONS PO WITH WATER, PUDDING, APPLE SAUCE, TO NO AVAIL. DAUGHTER IS GOING TO GIVE IT SOME TIME, EAT BREAKFAST AND FOLLOW-UP AGAIN WITH ATTEMPTS TO GET HER MOTHER TO EAT SOME BREAKFAST AND GET HER TO TAKE HER MEDICATIONS. SHE REPORTS THAT THEY HAVE THIS DIFFICULTY AT HOME ALSO AND THAT IS HOW SHE GOT DEHYDRATED BECAUSE THEY COULD NOT GET HER TO DRINK. SHE IS HOPING WHEN THE COMES IN SHE WILL RESPOND TO HIS REQUESTS.
--- NOTE | 2017-01-27 09:12 | NUR ---
PT.MEDICATED ORDERS PROVIDE. HE IS SITTING UPRIGHT IN RECLINER AND HAS FINISHED HIS BREAKFAST. 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 DENIES PAIN AT THIS TIME. POC DISCUSSED AND PT.INFORMED THAT [employer] BREATHING TREATMENTS ARE PRN SO HE WILL NEED TO REPORT TO ME WHEN HE NEEDS THEM. HE DENIES ANY NEEDS AT THIS TIME. NO S/S OF DISTRESSED BREATHING AT THIS TIME. CALL LIGHT IS AT SIDE AND PT.HAS BEEN INSTRUCTED TO CALL IF ANY NEEDS ARISE
--- NOTE | 2017-01-27 10:29 | NUR ---
PT.IS BECOMING VERY AGGITATED, AND DAUGHTER IS AT BEDSIDE ATTEMPTING TO COMFORT. PT.IS BECOMING SLIGHTLY COMBATIVE AND ATTEMPTING TO GET OUT OF THE BED. SHE WAS TREATED FOR PAIN VIA IV MORPHINE 20 MINUTES AGO FOR PAIN ON THE RIGHT SIDE OF HER HEAD. SHE WAS POINTING TO HER HEAD, SHE HAS BRUISING AND LACERATION TO RIGHT EYE AREA.
[2017-01-27] MEDS ORDERED: MIRTAZAPINE15 MG PO (11:39)
[2017-01-27] MEDS ORDERED: QUETIAPINE FUMA25 MG PO (11:39)
[2017-01-27] MEDS ORDERED: TRAMADOL HCL50 MG PO (11:39)
== END 2017-01-27 13:33 | disposition home health service (06) ==
LOC: ED 00:57 → ED-I 01:16 → ED 09:55 → MS2 09:56
PROVIDERS: Emergency Medicine; Nurse Practitioner Family; ADMIT Internal Medicine; ATTEND Internal Medicine
PROC: 0HQ1XZZ Repair Face Skin, External Approach (ICD-10-PCS; principal; 2017-01-26)
DX: S05.11XA Contusion of eyeball and orbital tissues, right eye, initial encounter (principal); S01.111A Laceration without foreign body of right eyelid and periocular area, initial encounter; S80.211A Abrasion, right knee, initial encounter; S40.211A Abrasion of right shoulder, initial encounter; E86.0 Dehydration; E11.22 Type 2 diabetes mellitus with diabetic chronic kidney disease; I12.9 Hypertensive chronic kidney disease with stage 1 through stage 4 chronic kidney disease, or unspecified chronic kidney disease; N18.9 Chronic kidney disease, unspecified; N17.9 Acute kidney failure, unspecified; E78.5 Hyperlipidemia, unspecified; F41.8 Other specified anxiety disorders; D64.9 Anemia, unspecified; M81.0 Age-related osteoporosis without current pathological fracture; F03.91 Unspecified dementia, unspecified severity, with behavioral disturbance; F05 Delirium due to known physiological condition; W19.XXXA Unspecified fall, initial encounter; Y92.009 Unspecified place in unspecified non-institutional (private) residence as the place of occurrence of the external cause; Z79.84 Long term (current) use of oral hypoglycemic drugs; Z91.83 Wandering in diseases classified elsewhere

== ENCOUNTER 2017-03-23 08:31 | Emergency (ER) | payer MEDICARE ==
[~2017-03-23] VITALS: Ht 144.8 cm; Wt 52.0 kg
[~2017-03-23 08:31] MED LIST changes: +DONEPEZIL5 MG PO; +MIRTAZAPINE15 MG PO; +MYRBETRIQ25 MG PO; +QUETIAPINE FUMA25 MG PO; +TRAMADOL HCL50 MG PO
[2017-03-23 09:45] VITALS: BP 117/45
== END 2017-03-23 09:53 | disposition home or self-care (01) ==
LOC: ED 08:31
DX: M25.531 Pain in right wrist (principal); E11.9 Type 2 diabetes mellitus without complications; I10 Essential (primary) hypertension; K21.9 Gastro-esophageal reflux disease without esophagitis; F03.90 Unspecified dementia, unspecified severity, without behavioral disturbance, psychotic disturbance, mood disturbance, and anxiety

== ENCOUNTER → 2018-04-11 | Outpatient (REF) | payer MEDICARE | END | disposition home or self-care (01) | LOC: MAMMO 09:25 | PROVIDERS: ATTEND Nurse Practitioner Family | DX: Z12.31 Encounter for screening mammogram for malignant neoplasm of breast (principal) ==

== ENCOUNTER 2019-05-12 | Emergency (ER) | payer MEDICARE ==
[2019-05-12 14:38] LABS: URINE BILIRUBIN - DIPSTICK NEGATIVE (NEGATIVE); URINE BLOOD DIPSTICK SMALL (NEGATIVE); URINE COLOR YELLOW; URINE GLUCOSE - DIPSTICK NEGATIVE (NEGATIVE); URINE KETONE NEGATIVE (NEGATIVE); URINE LEUK ESTERASE NEGATIVE (NEGATIVE); URINE NITRITE - DIPSTICK NEGATIVE (Negative); URINE PROTEIN - DIPSTICK 100 mg/dL (NEG-TRACE); URINE UROBILINOGEN - DIPSTICK 0.2 E.U./dL (0.2)
[2019-05-12 14:47] LABS: URINE SQUAMOUS EPITHELIAL CELL RARE EPI/hpf (0-FEW); URINE WBC 0-2 WBC/hpf (0-5)
[2019-05-12 14:58] LABS: HEMATOCRIT 34.8 % (37.0-47.0); HEMOGLOBIN 11.6 g/dl (12.0-16.0); IMMATURE GRANULOCYTES 0.3 % (0.0-5.0); MEAN CELL VOLUME 87.9 fL CALC (80.0-100.0); MEAN CORPUSCULAR HGB 29.3 pG CALC (26.0-32.0); MEAN CORPUSCULAR HGB CONC 33.3 g/dL CAL (32.0-36.0); NEUT# 5.61 thou/uL (2.00-7.15); RED BLOOD COUNT 3.96 mill/uL (4.20-5.60); RED CELL DISTRI WIDTH 13.4 % (11.5-15.5)
[2019-05-12 15:15] LABS: ALBUMIN 4.3 g/dL (3.2-5.0); ALKALINE PHOSPHATASE 105 u/l (38-126); ANION GAP 14 (6-22 (CALC)); BILIRUBIN, TOTAL 0.5 mg/dL (0.0-1.4); BUN 31 mg/dL (8-23); BUN/CREATININE RATIO 29 (12-20 (CALC)); CARBON DIOXIDE 21 mmol/l (22-30); CHLORIDE 106 mmol/l (95-108); CREATININE 1.1 mg/dL (0.5-1.0); GFR 47 ML/MIN (>=60 (CALC)); GFR FOR AFR.AMER. 57 ML/MIN (>=60 (CALC)); POTASSIUM 4.2 mmol/l (3.5-5.1); SGOT/AST 25 u/l (9-36); SODIUM 137 mmol/l (137-146); TOTAL PROTEIN 7.9 g/dL (6.3-8.2)
[2019-05-12] MEDS ORDERED: MECLIZINE25 MG PO (16:15)
== END 2019-05-12 16:34 | disposition home or self-care (01) ==
PROVIDERS: Family Medicine
DX: R42 Dizziness and giddiness (principal); E11.9 Type 2 diabetes mellitus without complications; I10 Essential (primary) hypertension; F03.90 Unspecified dementia, unspecified severity, without behavioral disturbance, psychotic disturbance, mood disturbance, and anxiety; Z79.84 Long term (current) use of oral hypoglycemic drugs

== ENCOUNTER 2020-12-22 14:21 | Emergency (ER) | payer MEDICARE ==
[~2020-12-22] VITALS: Ht 144.8 cm; Wt 59.0 kg
[~2020-12-22 14:21] MED LIST changes: +MECLIZINE25 MG PO
[2020-12-22] MEDS ORDERED: LOSARTAN POTASS50 MG PO (14:59)
[2020-12-22 15:26] LABS: URINE BILIRUBIN - DIPSTICK NEGATIVE (NEGATIVE); URINE BLOOD DIPSTICK NEGATIVE (NEGATIVE); URINE COLOR YELLOW; URINE GLUCOSE - DIPSTICK NEGATIVE (NEGATIVE); URINE KETONE NEGATIVE (NEGATIVE); URINE LEUK ESTERASE TRACE (NEGATIVE); URINE PROTEIN - DIPSTICK 100 mg/dL (NEG-TRACE); URINE UROBILINOGEN - DIPSTICK 0.2 E.U./dL (0.2)
[2020-12-22 15:26] LABS: HEMATOCRIT 31.2 % (37.0-47.0); HEMOGLOBIN 10.4 g/dl (12.0-16.0); IMMATURE GRANULOCYTES 0.4 % (0.0-5.0); MEAN CELL VOLUME 90.4 fL CALC (80.0-100.0); MEAN CORPUSCULAR HGB 30.1 pG CALC (26.0-32.0); MEAN CORPUSCULAR HGB CONC 33.3 g/dL CAL (32.0-36.0); NEUT# 6.1 thou/uL (2.00-7.15); RED BLOOD COUNT 3.45 mill/uL (4.20-5.60)
[2020-12-22 15:27] LABS: URINE NITRITE - DIPSTICK NEGATIVE (Negative)
[2020-12-22 15:34] LABS: URINE RBC 0-2 RBC/hpf (0-5)
[2020-12-22 15:35] LABS: URINE BACTERIA RARE hpf; URINE SQUAMOUS EPITHELIAL CELL RARE EPI/hpf (0-FEW)
[2020-12-22 15:37] LABS: ALBUMIN 4.1 g/dL (3.2-5.0); ALKALINE PHOSPHATASE 74 u/l (38-126); ANION GAP 15 (6-22 (CALC)); BILIRUBIN, TOTAL 0.8 mg/dL (0.0-1.4); BUN 19 mg/dL (8-23); BUN/CREATININE RATIO 16 (12-20 (CALC)); CARBON DIOXIDE 17 mmol/l (22-30); CHLORIDE 109 mmol/l (95-108); CREATININE 1.2 mg/dL (0.5-1.0); GFR 43 ML/MIN (>=60 (CALC)); GFR FOR AFR.AMER. 52 ML/MIN (>=60 (CALC)); SGOT/AST 26 u/l (9-36); SODIUM 136 mmol/l (137-146); TOTAL PROTEIN 7.8 g/dL (6.3-8.2)
[2020-12-22 15:49] LABS: MYOGLOBIN 86 ng/mL (0 - 62)
[2020-12-22] MEDS ORDERED: KEFLEX500 MG PO (18:39)
[2020-12-22] MEDS ORDERED: FIORICET PO (18:39)
[2020-12-22 18:48] VITALS: BP 159/64
== END 2020-12-22 18:50 | disposition home or self-care (01) ==
LOC: ED 14:21
PROVIDERS: Emergency Medicine
DX: I10 Essential (primary) hypertension (principal); N39.0 Urinary tract infection, site not specified; B96.20 Unspecified Escherichia coli [E. coli] as the cause of diseases classified elsewhere; Z95.0 Presence of cardiac pacemaker

== ENCOUNTER 2021-08-04 12:33 | Observation (INO) | payer MEDICARE ==
[2021-08-04] VITALS (15 sets, daily range): BP systolic 143–176; BP diastolic 51–63
[~2021-08-04] VITALS: Ht 144.8 cm; Wt 57.0 kg
[~2021-08-04 12:33] MED LIST changes: +FIORICET PO; +KEFLEX500 MG PO; +LOSARTAN POTASS50 MG PO
[2021-08-04 13:48] LABS: HEMATOCRIT 31.2 % (37.0-47.0); HEMOGLOBIN 10.4 g/dl (12.0-16.0); IMMATURE GRANULOCYTES 0.1 % (0.0-5.0); MEAN CELL VOLUME 90.2 fL CALC (80.0-100.0); MEAN CORPUSCULAR HGB 30.1 pG CALC (26.0-32.0); MEAN CORPUSCULAR HGB CONC 33.3 g/dL CAL (32.0-36.0); NEUT# 6.38 thou/uL (2.00-7.15); RED BLOOD COUNT 3.46 mill/uL (4.20-5.60); RED CELL DISTRI WIDTH 15.2 % (11.5-15.5)
[2021-08-04 14:13] LABS: ALBUMIN 4.1 g/dL (3.2-5.0); BILIRUBIN, TOTAL 0.4 mg/dL (0.0-1.4); CREATININE 1.5 mg/dL (0.5-1.0); POTASSIUM 4.8 mmol/l (3.5-5.1); TOTAL PROTEIN 7.7 g/dL (6.3-8.2)
[2021-08-04 14:21] LABS: URINE BILIRUBIN - DIPSTICK NEGATIVE (NEGATIVE); URINE BLOOD DIPSTICK TRACE-INTACT (NEGATIVE); URINE COLOR YELLOW; URINE GLUCOSE - DIPSTICK NEGATIVE (NEGATIVE); URINE KETONE NEGATIVE (NEGATIVE); URINE LEUK ESTERASE NEGATIVE (NEGATIVE); URINE PH 5.5 (4.5-8.0); URINE PROTEIN - DIPSTICK 100 mg/dL (NEG-TRACE); URINE UROBILINOGEN - DIPSTICK 0.2 E.U./dL (0.2)
[2021-08-04 14:23] LABS: URINE EPITHELIAL CELLS MODERATE EPI/hpf (0-FEW); URINE MUCUS MODERATE hpf (NONE-FEW); URINE NITRITE - DIPSTICK NEGATIVE (Negative); URINE RBC 0-2 RBC/hpf (0-5)
[2021-08-04] MEDS ORDERED: NORVASC PO (16:40)
[2021-08-05 04:22] VITALS: BP 159/49
[2021-08-05 05:38] VITALS: BP 159/49
[2021-08-05 07:16] VITALS: BP 151/55
[2021-08-05 09:05] LABS: HEMATOCRIT 30.5 % (37.0-47.0); HEMOGLOBIN 10.2 g/dl (12.0-16.0); MEAN CELL VOLUME 90.2 fL CALC (80.0-100.0); MEAN CORPUSCULAR HGB 30.2 pG CALC (26.0-32.0); MEAN CORPUSCULAR HGB CONC 33.4 g/dL CAL (32.0-36.0); NEUT# 5.89 thou/uL (2.00-7.15); RED BLOOD COUNT 3.38 mill/uL (4.20-5.60); RED CELL DISTRI WIDTH 15.1 % (11.5-15.5)
[2021-08-05 09:56] LABS: ALBUMIN 3.5 g/dL (3.2-5.0); BILIRUBIN, TOTAL 0.5 mg/dL (0.0-1.4); CREATININE 1.2 mg/dL (0.5-1.0); MAGNESIUM 1.7 mg/dL (1.6-2.3); POTASSIUM 4.8 mmol/l (3.5-5.1); TOTAL PROTEIN 6.5 g/dL (6.3-8.2)
[2021-08-05 10:25] VITALS: BP 154/55
== END 2021-08-05 12:18 | disposition home health service (06) ==
LOC: ED 12:33 → ED-I 15:00 → ED 15:30 → MS2 15:31
PROVIDERS: Nurse Practitioner; ADMIT Internal Medicine; ATTEND Internal Medicine
DX: R53.1 Weakness (principal); E86.0 Dehydration; I12.9 Hypertensive chronic kidney disease with stage 1 through stage 4 chronic kidney disease, or unspecified chronic kidney disease; E11.22 Type 2 diabetes mellitus with diabetic chronic kidney disease; N18.9 Chronic kidney disease, unspecified; E78.5 Hyperlipidemia, unspecified; F03.90 Unspecified dementia, unspecified severity, without behavioral disturbance, psychotic disturbance, mood disturbance, and anxiety; F41.8 Other specified anxiety disorders; K21.9 Gastro-esophageal reflux disease without esophagitis; Z79.84 Long term (current) use of oral hypoglycemic drugs; Z95.0 Presence of cardiac pacemaker; Z20.822 Contact with and (suspected) exposure to COVID-19

== ENCOUNTER 2022-01-12 13:14 | Emergency (ER) | payer MEDICARE ==
[~2022-01-12] VITALS: Ht 144.8 cm; Wt 55.0 kg
[~2022-01-12 13:14] MED LIST changes: +NORVASC PO
[2022-01-12 13:32] VITALS: BP 171/61
[2022-01-12 14:28] LABS: HEMATOCRIT 33.1 % (37.0-47.0); HEMOGLOBIN 10.9 g/dl (12.0-16.0); IMMATURE GRANULOCYTES 0.1 % (0.0-5.0); MEAN CELL VOLUME 90.9 fL CALC (80.0-100.0); MEAN CORPUSCULAR HGB 29.9 pG CALC (26.0-32.0); MEAN CORPUSCULAR HGB CONC 32.9 g/dL CAL (32.0-36.0); NEUT# 14.54 thou/uL (2.00-7.15); RED BLOOD COUNT 3.64 mill/uL (4.20-5.60); RED CELL DISTRI WIDTH 14.6 % (11.5-15.5)
[2022-01-12 14:33] LABS: ACT PARTIAL THROMBO TIME 23.1 SECONDS (20.0-32.5)
[2022-01-12 14:35] LABS: ALBUMIN 4.3 g/dL (3.2-5.0); ALKALINE PHOSPHATASE 80 u/l (38-126); ANION GAP 19 (6-22 (CALC)); BILIRUBIN, TOTAL 0.6 mg/dL (0.0-1.4); BUN 42 mg/dL (8-23); BUN/CREATININE RATIO 32 (12-20 (CALC)); CARBON DIOXIDE 15 mmol/l (22-30); CHLORIDE 111 mmol/l (95-108); CREATININE 1.3 mg/dL (0.5-1.0); GFR FOR AFR.AMER. 47 ML/MIN (>=60 (CALC)); GFR OTHER RACES 39 ML/MIN (>=60 (CALC)); POTASSIUM 5.1 mmol/l (3.5-5.1); SGOT/AST 25 u/l (9-36); SODIUM 139 mmol/l (137-146)
[2022-01-12 15:58] LABS: URINE BILIRUBIN - DIPSTICK NEGATIVE (NEGATIVE); URINE BLOOD DIPSTICK TRACE-INTACT (NEGATIVE); URINE COLOR YELLOW; URINE GLUCOSE - DIPSTICK NEGATIVE (NEGATIVE); URINE KETONE NEGATIVE (NEGATIVE); URINE LEUK ESTERASE NEGATIVE (NEGATIVE); URINE PROTEIN - DIPSTICK 100 mg/dL (NEG-TRACE); URINE UROBILINOGEN - DIPSTICK 0.2 E.U./dL (0.2)
[2022-01-12 16:02] LABS: URINE NITRITE - DIPSTICK NEGATIVE (Negative)
[2022-01-12 16:03] LABS: URINE RBC 0-2 RBC/hpf (0-5); URINE SQUAMOUS EPITHELIAL CELL FEW EPI/hpf (0-FEW); URINE WBC 0-2 WBC/hpf (0-5)
[2022-01-12] MEDS ORDERED: FLOXIN OTIC0.3 % OT (16:13)
[2022-01-12 16:15] VITALS: BP 171/61
[2022-01-13] MEDS ORDERED: PLAVIX75 MG PO (13:56)
[2022-01-13] MEDS ORDERED: ASPIRIN81 MG PO (13:57)
== END 2022-01-12 16:52 | disposition home or self-care (01) ==
LOC: ED 13:14
PROVIDERS: Physician Assistant Surgical
DX: J06.9 Acute upper respiratory infection, unspecified (principal); I10 Essential (primary) hypertension; E11.9 Type 2 diabetes mellitus without complications; K21.9 Gastro-esophageal reflux disease without esophagitis; E78.00 Pure hypercholesterolemia, unspecified; Z20.822 Contact with and (suspected) exposure to COVID-19

== ENCOUNTER 2022-01-13 10:19 | Observation (INO) | payer MEDICARE ==
[2022-01-13] VITALS (12 sets, daily range): BP systolic 120–182; BP diastolic 46–61
[~2022-01-13] VITALS: Ht 144.8 cm; Wt 53.9 kg
[~2022-01-13 10:19] MED LIST changes: +FLOXIN OTIC0.3 % OT
[2022-01-13 11:10] LABS: HEMOGLOBIN 11.3 g/dl (12.0-16.0); IMMATURE GRANULOCYTES 0.2 % (0.0-5.0); MEAN CELL VOLUME 90.4 fL CALC (80.0-100.0); MEAN CORPUSCULAR HGB 30.1 pG CALC (26.0-32.0); MEAN CORPUSCULAR HGB CONC 33.2 g/dL CAL (32.0-36.0); NEUT# 12.99 thou/uL (2.00-7.15); RED BLOOD COUNT 3.76 mill/uL (4.20-5.60); RED CELL DISTRI WIDTH 14.5 % (11.5-15.5)
[2022-01-13 11:20] LABS: ALBUMIN 3.9 g/dL (3.2-5.0); BILIRUBIN, TOTAL 0.5 mg/dL (0.0-1.4); CREATININE 1.7 mg/dL (0.5-1.0); POTASSIUM 4.7 mmol/l (3.5-5.1); TOTAL PROTEIN 7.4 g/dL (6.3-8.2)
[2022-01-13 11:59] LABS: URINE BILIRUBIN - DIPSTICK NEGATIVE (NEGATIVE); URINE BLOOD DIPSTICK SMALL (NEGATIVE); URINE COLOR YELLOW; URINE GLUCOSE - DIPSTICK NEGATIVE (NEGATIVE); URINE KETONE NEGATIVE (NEGATIVE); URINE LEUK ESTERASE NEGATIVE (NEGATIVE); URINE NITRITE - DIPSTICK NEGATIVE (Negative); URINE PH 5.5 (4.5-8.0); URINE PROTEIN - DIPSTICK >=300 mg/dL (NEG-TRACE); URINE SPECIFIC GRAVITY 1.025; URINE UROBILINOGEN - DIPSTICK 0.2 E.U./dL (0.2)
[2022-01-13 12:59] LABS: URINE AMORPH SEDIMENT MANY hpf (NONE-FEW); URINE WBC 0-2 WBC/hpf (0-5)
[2022-01-13 13:00] LABS: URINE SQUAMOUS EPITHELIAL CELL FEW EPI/hpf (0-FEW)
[2022-01-13 13:03] LABS: URINE CASTS RARE lpf (NONE-RARE); URINE COARSE GRANULAR CAST RARE lpf
[2022-01-13] MEDS ORDERED: PLAVIX75 MG PO (13:56)
[2022-01-13] MEDS ORDERED: ASPIRIN81 MG PO (13:57)
[2022-01-14 00:02] VITALS: BP 172/61
[2022-01-14 03:50] VITALS: BP 166/68
[2022-01-14 05:45] LABS: HEMATOCRIT 36.8 % (37.0-47.0); HEMOGLOBIN 12.4 g/dl (12.0-16.0); MEAN CELL VOLUME 90.2 fL CALC (80.0-100.0); MEAN CORPUSCULAR HGB 30.4 pG CALC (26.0-32.0); MEAN CORPUSCULAR HGB CONC 33.7 g/dL CAL (32.0-36.0); RED BLOOD COUNT 4.08 mill/uL (4.20-5.60); RED CELL DISTRI WIDTH 14.4 % (11.5-15.5)
[2022-01-14 05:52] LABS: CREATININE 1.1 mg/dL (0.5-1.0); MAGNESIUM 1.9 mg/dL (1.6-2.3); POTASSIUM 4.7 mmol/l (3.5-5.1)
[2022-01-14 06:30] VITALS: BP 191/68
[2022-01-14 09:57] VITALS: BP 175/67
[2022-01-14 14:40] VITALS: BP 153/50
[2022-01-14 18:40] VITALS: BP 165/64
[2022-01-15] VITALS (8 sets, daily range): BP systolic 136–195; BP diastolic 46–133
[2022-01-15 05:30] LABS: HEMATOCRIT 35.4 % (37.0-47.0); HEMOGLOBIN 11.8 g/dl (12.0-16.0); MEAN CELL VOLUME 90.5 fL CALC (80.0-100.0); MEAN CORPUSCULAR HGB 30.2 pG CALC (26.0-32.0); MEAN CORPUSCULAR HGB CONC 33.3 g/dL CAL (32.0-36.0); RED BLOOD COUNT 3.91 mill/uL (4.20-5.60); RED CELL DISTRI WIDTH 14.5 % (11.5-15.5)
[2022-01-15 05:50] LABS: CREATININE 1.3 mg/dL (0.5-1.0); MAGNESIUM 1.9 mg/dL (1.6-2.3); POTASSIUM 4.3 mmol/l (3.5-5.1)
[2022-01-16] VITALS (7 sets, daily range): BP systolic 127–158; BP diastolic 45–58
[2022-01-16 05:05] LABS: HEMATOCRIT 31.3 % (37.0-47.0); HEMOGLOBIN 10.5 g/dl (12.0-16.0); MEAN CELL VOLUME 90.7 fL CALC (80.0-100.0); MEAN CORPUSCULAR HGB 30.4 pG CALC (26.0-32.0); MEAN CORPUSCULAR HGB CONC 33.5 g/dL CAL (32.0-36.0); RED BLOOD COUNT 3.45 mill/uL (4.20-5.60); RED CELL DISTRI WIDTH 14.6 % (11.5-15.5)
[2022-01-16 05:26] LABS: BILIRUBIN, TOTAL 0.7 mg/dL (0.0-1.4); CREATININE 1.3 mg/dL (0.5-1.0); MAGNESIUM 1.8 mg/dL (1.6-2.3); POTASSIUM 3.8 mmol/l (3.5-5.1)
[2022-01-16 05:32] LABS: ALBUMIN 2.8 g/dL (3.2-5.0); TOTAL PROTEIN 5.5 g/dL (6.3-8.2)
[2022-01-17] VITALS (7 sets, daily range): BP systolic 167–198; BP diastolic 51–61
[2022-01-18] VITALS: BP 167/56
[2022-01-18 03:31] VITALS: BP 155/53
[2022-01-18 04:00] VITALS: BP 155/53
[2022-01-18 06:21] VITALS: BP 181/60
[2022-01-18 10:44] VITALS: BP 151/43
[2022-01-18 12:20] VITALS: BP 151/43
== END 2022-01-18 14:46 | disposition hospice, home (50) ==
LOC: ED 10:19 → ED-I 13:45 → ED 13:51 → MS2 14:01
PROVIDERS: Family Medicine; ADMIT Internal Medicine; ATTEND Internal Medicine
DX: R50.9 Fever, unspecified (principal); D72.829 Elevated white blood cell count, unspecified; K56.41 Fecal impaction; G93.40 Encephalopathy, unspecified; R62.7 Adult failure to thrive; N17.9 Acute kidney failure, unspecified; I12.9 Hypertensive chronic kidney disease with stage 1 through stage 4 chronic kidney disease, or unspecified chronic kidney disease; E11.22 Type 2 diabetes mellitus with diabetic chronic kidney disease; N18.9 Chronic kidney disease, unspecified; I25.10 Atherosclerotic heart disease of native coronary artery without angina pectoris; E78.00 Pure hypercholesterolemia, unspecified; K21.9 Gastro-esophageal reflux disease without esophagitis; F03.90 Unspecified dementia, unspecified severity, without behavioral disturbance, psychotic disturbance, mood disturbance, and anxiety; H92.09 Otalgia, unspecified ear; F41.8 Other specified anxiety disorders; I49.5 Sick sinus syndrome; Z95.5 Presence of coronary angioplasty implant and graft; Z51.5 Encounter for palliative care; Z79.02 Long term (current) use of antithrombotics/antiplatelets; Z79.84 Long term (current) use of oral hypoglycemic drugs; Z79.82 Long term (current) use of aspirin; Z20.822 Contact with and (suspected) exposure to COVID-19
CPT/HCPCS: J1650; J3370